=== PATIENT | male | born 1990 | race African-American/Black ===

== ENCOUNTER 2020-12-29 12:20 | Emergency (ER) | payer SELFPAY ==
[~2020-12-29] VITALS: Ht 188 cm; Wt 75.0 kg
[2020-12-29] MEDS ORDERED: FOLI1TAB11 PO (12:42)
[2020-12-29 14:16] LABS: HEMOGLOBIN 8.5 g/dl (13.5-17.5); MEAN CORPUSCULAR HEMOGLOBIN 27.6 pg (27.0-33.0); MEAN CORPUSCULAR VOLUME 81.2 fl (80.0-96.0); PLATELET COUNT, AUTOMATED 409 10^3/uL (150-450); RED BLOOD COUNT 3.08 10^6/uL (4.30-6.10)
[2020-12-29 14:22] LABS: WHITE BLOOD COUNT 12.6 10^3/uL (4.0-10.0)
[2020-12-29] MEDS ORDERED: NS 1,000 ML IV ONE (14:35)
[2020-12-29] MEDS ORDERED: FOLIC ACID 1 MG in NS 50 ML IV ONE (14:40)
[2020-12-29 14:43] LABS: BLOOD UREA NITROGEN 7 MG/DL (7-18); CALCIUM LEVEL 8.1 MG/DL (8.5-10.1); CARBON DIOXIDE LEVEL 24 MEQ/L (21-32); CHLORIDE LEVEL 106 MEQ/L (98-107); CREATININE FOR GFR 0.81 MG/DL (0.70-1.30); GLOMERULAR FILTRATION RATE > 60.0 (>60); GLUCOSE, FASTING 88 MG/DL (70-100); POTASSIUM SERUM 4.3 MEQ/L (3.5-5.1); SODIUM LEVEL 137 MEQ/L (136-145)
[2020-12-29 14:44] LABS: ATYPICAL LYMPH 11 % (0-5); LYMPHOCYTES 30 % (16-44); METAMYELOCYTES 1 % (0-0); MONOCYTES 4 % (0-5); MYELOCYTES 1 % (0-0); NEUTROPHILS 39 % (28-66); PLATELET ESTIMATE NORMAL (NORMAL); PROMYELOCYTES 1 % (0-0)
[2020-12-29 14:45] LABS: ANISOCYTOSIS 2+; HYPOCHROMASIA 1+; SICKLE CELLS 2+
[2020-12-29 17:26] VITALS: BP 127/63
== END 2020-12-29 17:20 | disposition home or self-care (01) ==
LOC: M ED 12:20
DX: D57.1 Sickle-cell disease without crisis (principal); F17.200 Nicotine dependence, unspecified, uncomplicated